=== PATIENT | female | born 1995 | race Caucasian/White ===

== ENCOUNTER 2021-08-10 16:33 | Emergency (ER) | payer SELFPAY ==
[~2021-08-10] VITALS: Ht 170 cm; Wt 99.7 kg
[2021-08-10 17:22] VITALS: BP 132/85
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
== END 2021-08-10 18:02 | disposition left against medical advice (07) ==
LOC: ER 16:35
DX: U07.0 Vaping-related disorder (principal); R05.9 Cough, unspecified; F17.290 Nicotine dependence, other tobacco product, uncomplicated; Z71.6 Tobacco abuse counseling
CPT/HCPCS: 99282